=== PATIENT | female | born 1960 | race Caucasian/White ===

== ENCOUNTER 2017-11-26 18:25 | Emergency (ER) | payer OTHER ==
[~2017-11-26] VITALS: Ht 170.2 cm; Wt 62.9 kg
[~2017-11-26 18:25] MED LIST: MACR100C PO; NEXI40CA PO; PHEN1TAB49 PO
[2017-11-26 18:28] VITALS: BP 127/79; PULSE 65; RESP 18; TEMP 97.6; O2SAT 100
[2017-11-26] MEDS ORDERED: OMEP40CA2 PO (19:16)
[2017-11-26] MEDS ORDERED: DICY10 PO (19:16)
[2017-11-26] MEDS ORDERED: SODIUM CHLOR 0.9% 1000 ML INJ 1,000 ML IV SCH (19:45)
--- NOTE | 2017-11-26 19:56 | PD ---
HPI Chief Complaint: Abdominal Pain Time Seen by Provider: 19:07 Travel History International Travel<30 days: No Contact w/Intl Traveler<30days: No Traveled to known affect area: No History of Present Illness HPI 57-year-old female complains of right flank pain, right upper quadrant abdominal pain and epigastric abdominal pain. Patient states that patient started having intermittent pain to the area patient states that the symptoms are worse for the past month. Patient states the pain and cramping pain for the past 4-5 months. Localized around the right flank area and right upper quadrant epigastric area. Patient denies any pain radiation. Patient states that she has nausea but no vomiting or diarrhea. Patient denies any dysuria frequency. Patient denies any vaginal discharge or bleeding. Patient states that she has poor appetite and generalized malaise and weakness and weight loss recently. Patient denies any chest pain or shortness of breath. Patient status post cholecystectomy and hysterectomy. Patient had normal colonoscopy done about 4 years ago. Patient was seen by pouncer and put on omeprazole and Bentyl without much relief of the pain. Patient's pending MRI of the abdomen. On a scale of 1-10 the pain is a 7. PFSH Past Medical History Arthritis: Yes Cancer: Yes (SKIN) Diminished Hearing: No GERD: Yes Headaches: Yes Influenza Vaccination: Yes ?: Not Menopausal: Yes : 3 Para: 3 : 1 Tubal Ligation: Yes Past Surgical History Section: Yes (X2) Cholecystectomy: Yes (2014) Gynecologic Surgery: Yes (LEFT OOPHORECTOMY) Hysterectomy: Yes (2006) Social History Alcohol Use: Yes (VERY RARELY) Tobacco Use: No (QUIT TOBACCO: JUN 2016, USES VAPE PEN ONLY) Substance Use: No Allergies-Medications (Allergen,Severity, Reaction): Coded Allergies: No Known Allergies (Verified Adverse Reaction, Unknown, 11/26/17) Reported Meds & Prescriptions Reported Meds & Active Scripts Active Reported Bentyl (Dicyclomine HCl) 10 Mg Cap 10 Mg PO TID PRN Omeprazole 40 Mg Cap 40 Mg PO DAILY Review of Systems General / Constitutional: No: Fever Eyes: No: Visual changes HENT: No: Headaches Cardiovascular: No: Chest Pain or Discomfort Respiratory: No: Shortness of Breath Gastrointestinal: Positive: Nausea, Abdominal Pain Genitourinary: No: Dysuria Musculoskeletal: No: Pain Skin: No Rash Neurologic: No: Weakness Psychiatric: No: Depression Endocrine: No: Polydipsia Hematologic/Lymphatic: No: Easy Bruising Physical Exam Narrative GENERAL: Well-nourished, well-developed patient. SKIN: Focused skin assessment warm/dry. HEAD: Normocephalic. EYES: No scleral icterus. No injection or drainage. NECK: Supple, trachea midline. No JVD or lymphadenopathy. CARDIOVASCULAR: Regular rate and rhythm without murmurs, gallops, or rubs. RESPIRATORY: Breath sounds equal bilaterally. No accessory muscle use. GASTROINTESTINAL: Abdomen soft, nondistended. Patient has moderate tenderness in palpation epigastric and right upper quadrant of the abdomen. No rebound tenderness. No mass. MUSCULOSKELETAL: No cyanosis, or edema. BACK: Patient has moderate tenderness on palpation right flank area. Neurologic exam normal. Data Data Last Documented VS Vital Signs Date Time Temp Pulse Resp B/P (MAP) Pulse Ox O2 Delivery O2 Flow Rate FiO2 11/26/17 21:23 82 20 114/57 (76) 99 11/26/17 18:28 97.6 Orders Orders Complete Blood Count With Diff (11/26/17 19:45) Comprehensive Metabolic Panel (11/26/17 19:45) Lipase (11/26/17 19:45) Prothrombin Time / Inr (Pt) (11/26/17 19:45) Act Partial Throm Time (Ptt) (11/26/17 19:45) Urinalysis - C+S If Indicated (11/26/17 19:45) Ct Abd/Pel W Iv Contrast(Rout) (11/26/17 19:45) Iv Access Insert/Monitor (11/26/17 19:45) Ecg Monitoring (11/26/17 19:45) Oximetry (11/26/17 19:45) Sodium Chlor 0.9% 1000 Ml Inj (Ns 1000 M (11/26/17 19:45) Iohexol 350 Inj (Omnipaque 350 Inj) (11/26/17 21:05) Ed Discharge Order (11/26/17 22:25) Labs Laboratory Tests Test 11/26/17 19:30 11/26/17 20:11 White Blood Count 5.7 TH/MM3 Red Blood Count 4.53 MIL/MM3 Hemoglobin 13.5 GM/DL Hematocrit 40.9 % Mean Corpuscular Volume 90.4 FL Mean Corpuscular Hemoglobin 29.7 PG Mean Corpuscular Hemoglobin Concent 32.9 % Red Cell Distribution Width 12.3 % Platelet Count 237 TH/MM3 Mean Platelet Volume 7.6 FL Neutrophils (%) (Auto) 53.8 % Lymphocytes (%) (Auto) 33.4 % Monocytes (%) (Auto) 9.3 % Eosinophils (%) (Auto) 1.5 % Basophils (%) (Auto) 2.0 % Neutrophils # (Auto) 3.1 TH/MM3 Lymphocytes # (Auto) 1.9 TH/MM3 Monocytes # (Auto) 0.5 TH/MM3 Eosinophils # (Auto) 0.1 TH/MM3 Basophils # (Auto) 0.1 TH/MM3 CBC Comment DIFF FINAL Differential Comment Prothrombin Time 10.7 SEC Prothromb Time International Ratio 1.1 RATIO Activated Partial Thromboplast Time 26.8 SEC Blood Urea Nitrogen 20 MG/DL Creatinine 0.61 MG/DL Random Glucose 91 MG/DL Total Protein 7.2 GM/DL Albumin 4.0 GM/DL Calcium Level 9.0 MG/DL Alkaline Phosphatase 91 U/L Aspartate Amino Transf (AST/SGOT) 14 U/L Alanine Aminotransferase (ALT/SGPT) 19 U/L Total Bilirubin 0.4 MG/DL Sodium Level 140 MEQ/L Potassium Level 3.6 MEQ/L Chloride Level 104 MEQ/L Carbon Dioxide Level 27.1 MEQ/L Anion Gap 9 MEQ/L Estimat Glomerular Filtration Rate 102 ML/MIN Lipase 136 U/L Urine Color YELLOW Urine Turbidity CLEAR Urine pH 6.0 Urine Specific [place] GREATER/EQUAL 1.030 Urine Protein NEG mg/dL Urine Glucose (UA) NEG mg/dL Urine Ketones TRACE mg/dL Urine Occult Blood NEG Urine Nitrite NEG Urine Bilirubin NEG Urine Urobilinogen 0.2 MG/DL Urine Leukocyte Esterase NEG Urine RBC 0-2 /hpf Urine WBC 0-2 /hpf Urine Squamous Epithelial Cells 0-5 /hpf Urine Bacteria NONE /hpf Microscopic Urinalysis Comment CULT NOT INDICATED MDM Medical Decision Making Medical Screen Exam Complete: Yes Emergency Medical Condition: Yes Interpretation(s) 21:16 PM. CBC within normal limits. CMP within normal limits. UA is negative. Differential Diagnosis Differential diagnosis including gastritis, PUD, pancreatitis, colitis, UTI, pyelonephritis, nephrolithiasis. Narrative Course 57-year-old female with epigastric pain, right upper quadrant pain, right flank pain. Normal saline solution 1 25 cc an hour. Diagnosis Primary Impression: Abdominal pain Qualified Codes: R10.11 - Right upper quadrant pain Patient Instructions: General Instructions Additional Instructions: Continue with omeprazole as directed. Carafate as directed. Follow-up with pouncer. Return if worse. Med/Other Pt SpecificInfo: Prescription(s) given Scripts Sucralfate (Carafate) 1 Gram Tab 1 GM PO QID for Ulcer Prevention, #120 TAB 0 Refills On empty stomach Prov: Jean Triana MD 11/26/17 Disposition: 01 DISCHARGE HOME Condition: Stable Jean Triana MD Nov 26, 2017 19:56
[2017-11-26 20:16] LABS: BILIRUBIN, URINE NEG (NEG); BLOOD, URINE NEG (NEG); GLUCOSE,URINE NEG (NEG); KETONE, URINE TRACE mg/dL (NEG); NITRITE,URINE NEG (NEG); URINE COLOR YELLOW (YELLW/STRAW); URINE LEUKOCYTE ESTERASE NEG (NEG)
[2017-11-26 20:16] LABS: AUTOMATED NEUTROPHIL # 3.1 TH/MM3 (1.8-7.7); BASOPHIL # 0.1 TH/MM3 (0-0.2); EOSINOPHIL # 0.1 TH/MM3 (0-0.4); EOSINOPHIL % 1.5 % (0.0-4.0); HEMATOCRIT 40.9 % (35.0-46.0); HEMOGLOBIN 13.5 GM/DL (11.6-15.3); LYMPH % 33.4 % (9.0-44.0); LYMPHOCYTE # 1.9 TH/MM3 (1.0-4.8); MEAN CELL VOLUME 90.4 FL (80.0-100.0); MEAN CORPUSCULAR HEMOGLOBIN 29.7 PG (27.0-34.0); MEAN CORPUSCULAR HGB CONC 32.9 % (32.0-36.0); MEAN PLATELET VOLUME 7.6 FL (7.0-11.0); MONO % 9.3 % (0.0-8.0); MONOCYTE # 0.5 TH/MM3 (0-0.9); NEUT % 53.8 % (16.0-70.0); PLATELET COUNT 237 TH/MM3 (150-450); RED BLOOD COUNT 4.53 MIL/MM3 (4.00-5.30); RED CELL DISTRIBUTION WIDTH 12.3 % (11.6-17.2); WHITE BLOOD COUNT 5.7 TH/MM3 (4.0-11.0)
[2017-11-26 20:20] LABS: RBC, URINE 0-2 /hpf (0-3); SQUAMOUS EPITHELIAL CELL URINE 0-5 /hpf (0-5); WBC, URINE 0-2 /hpf (0-5)
[2017-11-26 20:31] LABS: CHLORIDE 104 MEQ/L (98-107); SODIUM (NA) 140 MEQ/L (136-145)
[2017-11-26 20:35] LABS: BICARBONATE 27.1 MEQ/L (21.0-32.0); BLOOD UREA NITROGEN 20 MG/DL (7-18); GLUCOSE,RANDOM 91 MG/DL (74-106)
[2017-11-26 20:36] LABS: INTERNATIONAL NORMALIZED RATIO 1.1 RATIO; PROTHROMBIN TIME - PATIENT 10.7 SEC (9.8-11.6)
[2017-11-26 20:38] LABS: ALT (GPT) 19 U/L (10-53); AST (GOT) 14 U/L (15-37); CREATININE 0.61 MG/DL (0.50-1.00); GLOMERULAR FILTRATION RATE 102 ML/MIN (>89)
[2017-11-26 20:39] LABS: TOTAL BILIRUBIN ADULT 0.4 MG/DL (0.2-1.0)
[2017-11-26 20:40] LABS: TOTAL PROTEIN 7.2 GM/DL (6.4-8.2)
[2017-11-26 20:41] LABS: ALKALINE PHOSPHATASE 91 U/L (45-117)
[2017-11-26] MEDS ORDERED: IOHEXOL 350 MG/ML 10 ML VIAL (for RAD DIAG) IVCONTRAST ONE (21:05)
[2017-11-26 21:23] VITALS: BP 114/57; PULSE 82; RESP 20; O2SAT 99
--- NOTE | 2017-11-26 22:18 | RADRPT ---
EXAM DATE: 11/26/2017 9:12 PM EDT AGE/SEX: 57 years / Female INDICATIONS: Right upper quadrant pain. Nausea. Weakness. Diarrhea. CLINICAL DATA: This is the patient's initial encounter. Patient reports that signs and symptoms have been present for 1 week and indicates a pain score of 7/10. MEDICAL/SURGICAL HISTORY: Gastroesophageal reflux disease. Cholecystectomy. Hysterectomy. Wenceslao arean section. Left oophorectomy. Tubal ligation. ORAL CONTRAST: No oral contrast ingested. RADIATION DOSE: 7.24 CTDI (mGy) COMPARISON: No prior exams available for comparison. TECHNIQUE: Multiple contiguous axial images were obtained through the abdomen and pelvis following b olus infusion of 75 ml Omnipaque 350 (iohexol) nonionic water-soluble contrast as a single exam dos e. No oral contrast ingested. Using automated exposure control and adjustment of the mA and/or kV ac cording to patient size, radiation dose was kept as low as reasonably achievable to obtain optimal di agnostic quality images. DICOM format image data is available electronically for review and comparis on. FINDINGS: Lower chest: No acute abnormality is identified. Hepatobiliary: No focal liver lesion is identified. Hepatic vasculature demonstrates no abnormality. Gallbladder is absent with clips in the gallbladder fossa. No bile duct dilatation is present. Kidneys: No hydronephrosis, stone, or mass. Adrenal Glands: Within normal limits. Spleen: Within normal limits. Pancreas: Within normal limits. Vascular: The aorta is nonaneurysmal. Bowel/Mesentery: The stomach and small bowel demonstrate no abnormality. No acute colon abnormality i s seen. There is no free intraperitoneal air or fluid. Abdominal Wall: No hernia is visualized. Retroperitoneum: No lymphadenopathy. Bladder: Decompressed but no abnormality is appreciated. Reproductive: Uterus is absent. No adnexal abnormality is seen. Inguinal: No lymphadenopathy or hernia. Musculoskeletal: No acute osseous abnormality is identified. CONCLUSION: No acute abnormality is identified to explain the clinical symptoms. Electronically signed by: Eugenio Henderson MD 11/26/2017 10:17 PM EDT
[2017-11-26] MEDS ORDERED: CARA1TAB6 PO (22:28)
[2017-11-26 22:56] VITALS: BP 116/66
== END 2017-11-26 22:58 | disposition home or self-care (01) ==
LOC: PHED 18:25
DX: R10.13 Epigastric pain (principal); R10.11 Right upper quadrant pain; R11.0 Nausea; K21.9 Gastro-esophageal reflux disease without esophagitis
CPT/HCPCS: 74177; 80053; 81001; 83690; 85025; 85610; 85730; 99285; J7030; Q9967